=== PATIENT | female | born 1970 | race Caucasian/White ===

== ENCOUNTER 2016-11-04 13:54 | Inpatient (IN) | payer OTHER ==
[~2016-11-04] VITALS: Ht 160 cm; Wt 105.2 kg
[2016-11-04 13:55] VITALS: BP 128/77; PULSE 99; RESP 18; TEMP 99.2; O2SAT 97
--- NOTE | 2016-11-04 14:01 | PD ---
Physical Exam Time Seen by Provider: 13:58 Narrative Macedonian-speaking. Information obtained from daughter. 45-year-old female hearing voices telling her to take her life. Has a plan to take pills. Denies EtOH or illicit drug use. The voices are telling her to cut her wrists. History of depression and anxiety and currently on medications. Patient seen in triage. Vital signs reviewed. Patient taken to medical bed. Data Data Last Documented VS Vital Signs Date Time Temp Pulse Resp B/P (MAP) Pulse Ox O2 Delivery O2 Flow Rate FiO2 11/04/16 13:55 99.2 99 18 128/77 (94) 97 Room Air MDM Supervised Visit with KHOA: Kiki La Nov 04, 2016 14:01
--- NOTE | 2016-11-04 14:18 | PD ---
HPI Chief Complaint: Psychiatric Symptoms Time Seen by Provider: 14:03 Travel History International Travel<30 days: No Contact w/Intl Traveler<30days: No Traveled to known affect area: No History of Present Illness HPI 45-year-old female presents to the emergency department with her daughter and friend at bedside for psychiatric evaluation. The patient is Djiboutian-speaking and request translation to be done through daughter and friend. Formal commissioning agent was offered inpatient. She saw her psychiatrist today and told her psychiatrist that she had thoughts of hurting herself and was hearing voices that were telling her to cut her wrists. She was recommended to come to the emergency department for evaluation. The patient has history of anxiety, depression, hypothyroidism, diabetes, hypertension, hyperlipidemia, chronic renal insufficiency. She has had thoughts of hurting herself in the past by taking pills however, has never hurt herself. The patient denies trying to hurt herself this time. She does have thoughts of hurting herself by taking pills or cutting her wrists. She denies history of hearing voices and states this is new for her for the past 2 days. They are telling her to cut her wrists. She denies any visual hallucinations. Patient is alert and oriented and answers questions appropriately. PFSH Social History Alcohol Use: No Tobacco Use: No Substance Use: No Review of Systems Except as stated in HPI: all other systems reviewed are Neg Physical Exam Narrative GENERAL: Well-nourished, well-developed female patient, ambulatory. Afebrile SKIN: Focused skin assessment warm/dry. HEAD: Normocephalic. Atraumatic. EYES: No scleral icterus. No injection or drainage. NECK: Supple, trachea midline. No JVD or lymphadenopathy. CARDIOVASCULAR: Regular rate and rhythm without murmurs, gallops, or rubs. RESPIRATORY: Breath sounds equal bilaterally. No accessory muscle use. Lungs sounds are clear to auscultation. GASTROINTESTINAL: Abdomen soft, non-tender, nondistended. MUSCULOSKELETAL: No cyanosis, or edema. PSYCHIATRIC: No delusional thought processes. No hallucinations. Data Data Last Documented VS Vital Signs Date Time Temp Pulse Resp B/P (MAP) Pulse Ox O2 Delivery O2 Flow Rate FiO2 11/04/16 13:55 99.2 99 18 128/77 (94) 97 Room Air Orders Orders Complete Blood Count With Diff (11/04/16 14:11) Comprehensive Metabolic Panel (11/04/16 14:11) Thyroid Stimulating Hormone (11/04/16 14:11) Urinalysis - C+S If Indicated (11/04/16 14:11) Psych Screen (11/04/16 14:11) Drug Screen, Random Urine (11/04/16 14:11) Alcohol (Ethanol) (11/04/16 14:11) Salicylates (Aspirin) (11/04/16 14:11) Tylenol (Acetaminophen) (11/04/16 14:11) Diet Regular Basic (11/04/16 Dinner) Labs Laboratory Tests Test 11/04/16 14:25 11/04/16 14:33 Urine Color YELLOW Urine Turbidity HAZY Urine pH 6.0 Urine Specific [place] 1.023 Urine Protein 300 mg/dL Urine Glucose (UA) NEG mg/dL Urine Ketones NEG mg/dL Urine Occult Blood TRACE Urine Nitrite NEG Urine Bilirubin NEG Urine Urobilinogen LESS THAN 2.0 MG/DL Urine Leukocyte Esterase NEG Urine RBC 1 /hpf Urine WBC 5 /hpf Urine Squamous Epithelial Cells 23 /hpf Urine Bacteria RARE /hpf Microscopic Urinalysis Comment CULT NOT INDICATED Urine Opiates Screen NEG Urine Barbiturates Screen NEG Urine Amphetamines Screen NEG Urine Benzodiazepines Screen POS Urine Cocaine Screen NEG Urine Cannabinoids Screen NEG White Blood Count 9.4 TH/MM3 Red Blood Count 4.02 MIL/MM3 Hemoglobin 10.0 GM/DL Hematocrit 32.5 % Mean Corpuscular Volume 80.7 FL Mean Corpuscular Hemoglobin 24.8 PG Mean Corpuscular Hemoglobin Concent 30.7 % Red Cell Distribution Width 20.6 % Platelet Count 376 TH/MM3 Mean Platelet Volume 8.2 FL Neutrophils (%) (Auto) 66.0 % Lymphocytes (%) (Auto) 21.8 % Monocytes (%) (Auto) 8.0 % Eosinophils (%) (Auto) 4.1 % Basophils (%) (Auto) 0.1 % Neutrophils # (Auto) 6.2 TH/MM3 Lymphocytes # (Auto) 2.1 TH/MM3 Monocytes # (Auto) 0.8 TH/MM3 Eosinophils # (Auto) 0.4 TH/MM3 Basophils # (Auto) 0.0 TH/MM3 CBC Comment DIFF FINAL Differential Comment Blood Urea Nitrogen 21 MG/DL Creatinine 1.47 MG/DL Random Glucose 133 MG/DL Total Protein 7.4 GM/DL Albumin 3.2 GM/DL Calcium Level 8.6 MG/DL Alkaline Phosphatase 90 U/L Aspartate Amino Transf (AST/SGOT) 16 U/L Alanine Aminotransferase (ALT/SGPT) 27 U/L Total Bilirubin 0.1 MG/DL Sodium Level 140 MEQ/L Potassium Level 3.5 MEQ/L Chloride Level 107 MEQ/L Carbon Dioxide Level 26.6 MEQ/L Anion Gap 6 MEQ/L Estimat Glomerular Filtration Rate 38 ML/MIN Thyroid Stimulating Hormone 3rd Gen 5.090 uIU/ML Salicylates Level LESS THAN 1.7 MG/DL Acetaminophen Level LESS THAN 2.0 MCG/ML Ethyl Alcohol Level LESS THAN 3 MG/DL MDM Medical Decision Making Medical Screen Exam Complete: Yes Emergency Medical Condition: Yes Medical Record Reviewed: Yes Differential Diagnosis Depression versus anxiety versus psychosis versus bipolar disorder versus schizophrenia versus electrolyte abnormality Narrative Course 45-year-old female presents to the emergency department for suicidal ideation, hearing voices. CBC, CMP, TSH, UA, urine drug screen, alcohol level, salicylate level, Tylenol level are ordered and pending. Roberson Act will be initiated. CBC .shows anemia of hemoglobin 10.0, hematocrit 32.5. CMP shows BUN 21, creatinine 1.47, glucose 133. TSH is 5.090. UA is negative for acute infection. UDS is positive for benzodiazepines. Alcohol level is less than 3. Salicylate level is less than 1.7. Tylenol level is less than 2.0. Patient is medically cleared for psychiatric screening and disposition. Mental health screening discussed with the patient. Psychiatric screen ordered. Diagnosis Primary Impression: Depression Qualified Codes: F32.9 - Major depressive disorder, single episode, unspecified Additional Impression: Suicidal ideation Additional Instructions: Patient is medically cleared for psychiatric screening and disposition. Condition: Stable RuslanTrudy GARCIA Nov 04, 2016 14:18
--- NOTE | 2016-11-04 15:15 | PD ---
Data Data Last Documented VS Vital Signs Date Time Temp Pulse Resp B/P (MAP) Pulse Ox O2 Delivery O2 Flow Rate FiO2 11/04/16 13:55 99.2 99 18 128/77 (94) 97 Room Air Orders Orders Complete Blood Count With Diff (11/04/16 14:11) Comprehensive Metabolic Panel (11/04/16 14:11) Thyroid Stimulating Hormone (11/04/16 14:11) Urinalysis - C+S If Indicated (11/04/16 14:11) Psych Screen (11/04/16 14:11) Drug Screen, Random Urine (11/04/16 14:11) Alcohol (Ethanol) (11/04/16 14:11) Salicylates (Aspirin) (11/04/16 14:11) Tylenol (Acetaminophen) (11/04/16 14:11) Diet Regular Basic (11/04/16 Dinner) Labs Laboratory Tests Test 11/04/16 14:25 11/04/16 14:33 MDM Supervised Visit with KHOA: Yes Narrative Course The history, exam, and medical decision-making in the associated mid-level provider note were completed with my assistance. I reviewed and agree with the findings presented. I attest that I had a [id number] encounter with the patient on the same day, and personally performed and documented my assessment and findings in the medical record. *My assessment and Findings: 45 year-old woman, increased hearing voices increased depression increased suicidality. Looks otherwise well. Pleasant. Placed under a Roberson act and plan for psychiatric evaluation. Krystian Mac MD Nov 04, 2016 15:15
[2016-11-04 15:19] LABS: AUTOMATED NEUTROPHIL # 6.2 TH/MM3 (1.8-7.7); BASOPHIL % 0.1 % (0.0-2.0); EOSINOPHIL # 0.4 TH/MM3 (0-0.4); EOSINOPHIL % 4.1 % (0.0-4.0); HEMATOCRIT 32.5 % (35.0-46.0); HEMO FLAGS DIFF FINAL; LYMPH % 21.8 % (9.0-44.0); LYMPHOCYTE # 2.1 TH/MM3 (1.0-4.8); MEAN CELL VOLUME 80.7 FL (80.0-100.0); MEAN CORPUSCULAR HEMOGLOBIN 24.8 PG (27.0-34.0); MEAN CORPUSCULAR HGB CONC 30.7 % (32.0-36.0); PLATELET COUNT 376 TH/MM3 (150-450); RED BLOOD COUNT 4.02 MIL/MM3 (4.00-5.30); RED CELL DISTRIBUTION WIDTH 20.6 % (11.6-17.2); WHITE BLOOD COUNT 9.4 TH/MM3 (4.0-11.0)
[2016-11-04 15:22] LABS: BACTERIA, URINE RARE /hpf; BLOOD, URINE TRACE (NEG); COMMENT (UR) CULT NOT INDICATED; CULTURE IF INDICATED CULT NOT INDICATED; GLUCOSE,URINE NEG (NEG); KETONE, URINE NEG (NEG); NITRITE,URINE NEG (NEG); SQUAMOUS EPITHELIAL CELL URINE 23 /hpf (0-5); URINE COLOR YELLOW (YELLW/STRAW)
[2016-11-04 15:31] LABS: ALT (GPT) 27 U/L (10-53); ANION GAP 6 MEQ/L (5-15); AST (GOT) 16 U/L (15-37); BICARBONATE 26.6 MEQ/L (21.0-32.0); BLOOD UREA NITROGEN 21 MG/DL (7-18); CHLORIDE 107 MEQ/L (98-107); GLOMERULAR FILTRATION RATE 38 ML/MIN (>89); POTASSIUM 3.5 MEQ/L (3.5-5.1); SODIUM (NA) 140 MEQ/L (136-145)
[2016-11-04 15:41] LABS: ALKALINE PHOSPHATASE 90 U/L (45-117); TOTAL BILIRUBIN ADULT 0.1 MG/DL (0.2-1.0)
[2016-11-04 15:43] LABS: ACETAMINOPHEN LESS THAN 2.0 MCG/ML (10.0-30.0); ALCOHOL LESS THAN 3 MG/DL (0-5)
[2016-11-04] MEDS ORDERED: CLON.5 PO (16:13)
[2016-11-04] MEDS ORDERED: FLUT1SPR5 EACH NARE (16:13)
[2016-11-04] MEDS ORDERED: FOLI1TAB6 PO (16:13)
[2016-11-04] MEDS ORDERED: VITA250T3 PO (16:13)
[2016-11-04] MEDS ORDERED: TRAM50TA PO (16:13)
[2016-11-04] MEDS ORDERED: FERR325T8 PO (16:13)
[2016-11-04] MEDS ORDERED: ROSU40 PO (16:13)
[2016-11-04] MEDS ORDERED: ASPI1TAB91 PO (16:13)
[2016-11-04] MEDS ORDERED: TRAD5TAB PO (16:13)
[2016-11-04] MEDS ORDERED: SYNT175T PO (16:13)
[2016-11-04] MEDS ORDERED: NEUR600T PO (16:13)
[2016-11-04] MEDS ORDERED: TEMA30CA PO (16:13)
[2016-11-04] MEDS ORDERED: ZANT300T PO (16:13)
[2016-11-04] MEDS ORDERED: CHOL1CAP6 PO (16:13)
[2016-11-04] MEDS ORDERED: VITA10002 PO (16:13)
[2016-11-04] MEDS ORDERED: COZA100T PO (16:13)
[2016-11-04] MEDS ORDERED: ZOLO100T PO (16:13)
[2016-11-04] MEDS ORDERED: OMEP20TA PO (16:13)
[2016-11-04 17:38] VITALS: BP 158/67; PULSE 98; RESP 18; O2SAT 98
--- NOTE | 2016-11-04 19:00 | PD ---
History of Present Illness Chief Complaint: Psychiatric Symptoms Time Seen by Provider: 16:25 Travel History International Travel<30 Days: No Contact w/Intl Traveler<30days: No Known affected area: No Legal Status Legal Status: Roberson Act Roberson Act Signed By: DR. Mac, [facility] History of Present Illness: History of Present Illness HPI 45-year-old Zimbabwean speaking female from [facility] with history of anxiety and depression as well as hypothyroidism, diabetes, hypertension, hyperlipidemia, chronic renal insufficiency, who presents to ED on a voluntary basis referred by her outpatient psychiatrist for evaluation of increase in auditory hallucinations, command type telling her to cut her wrist.She also reports thoughts of wanting to overdose on her pills. She has not made any attempt at harming herself. The patient saw her outpatient psychiatrist, Dr. Glasgow, for her second visit today . She denies history of hearing voices and states this is new for her for the past 2 days. She also reports inability to fall asleep and stay asleep despite taking temazepam. decrease appetite, increase in anxiety, increase in worry over her son who is in [place] and she has not heard from him, irritability, withdrawn and isolative behavior. Duration 2 days. Patient was placed under Rob[place]ron act by Dr. Mac EMR. No previous contact with [facility]. Patient is alert, oriented, obese female who is engaging and cooperative. Speech is clear, logical. She does not appear internally preoccupied. No A/ H at present . Mood is depressed , tearful at times. Appears of average intelligence. Decreased concentration. She reports that she feels medication is not helping her symptoms of depression and anxiety. PFSH Past Medical History ?: Unknown Psychiatric History Psychiatric History Hx Psychiatric Treatment: Two previous hospitalizations at [facility] in [place] in 2015. Sees [address]. Glasgow at [facility] Behavioral History of Inpatient Treatment: Yes Guns or firearms in home: No Social History Single female. Born and raised in [place]. Moved to [place] in March 2015. Lives with her daughter. One son in [place] Unemployed. Completed high school . Hx Alcohol Use: No Hx Tobacco Use: Yes Hx Substance Use: No Family Psychiatric History Maternal uncle completed suicide by hanging. One cousin also attempted suicide. Allergies-Medications (Allergen,Severity, Reaction): Coded Allergies: No Known Allergies (Unverified , 11/04/16) Reported Meds & Prescriptions Reported Meds & Active Scripts Active Reported Klonopin (Clonazepam) 0.5 Mg Tab 0.5 Mg PO BID Temazepam 30 Mg Cap 30 Mg PO HS PRN Neurontin (Gabapentin) 600 Mg Tab 600 Mg PO HS Flonase Nasal [place] (Fluticasone Nasal [place]) 50 Mcg/Act [place] 2 [place] EACH NARE DAILY Ferrous Sulfate 325 Mg (65 Mg Iron) Tablet 325 Mg PO DAILY Zoloft (Sertraline HCl) 100 Mg Tab 100 Mg PO DAILY Aspirin Adult Low Strength (Aspirin) 81 Mg Tabdr 81 Mg PO DAILY Tramadol (Tramadol HCl) 50 Mg Tab 50 Mg PO DAILY Zantac (Ranitidine HCl) 300 Mg Tab 300 Mg PO DAILY Cozaar (Losartan Potassium) 100 Mg Tab 100 Mg PO DAILY Omeprazole 20 Mg Tab 20 Mg PO DAILY Tradjenta (Linagliptin) 5 Mg Tab 5 Mg PO DAILY Folic Acid 1 Mg Tablet 1 Mg PO DAILY Vitamin C (Ascorbic Acid) 250 Mg Tab 500 Mg PO DAILY Vitamin D-3 (Cholecalciferol) 1,000 Unit Cap 1,000 Units PO DAILY Vitamin B-12 (Cyanocobalamin) 1,000 Mcg Tab 1,000 Mcg PO DAILY Synthroid (Levothyroxine Sodium) 175 Mcg Tab 175 Mcg PO DAILY Review of Systems Constitutional: COMPLAINS OF: Change in appetite Musculoskeletal: COMPLAINS OF: Joint pain Psychiatric: COMPLAINS OF: Anxiety, Depression, Suicidal Ideation Exam Alert: Yes [place]: Person (ox4) Mood: Depressed Affect: Tearful Speech: Clear, Logical (Communicates in Zimbabwean. ) Eye Contact: Normal Memory Intact: Comment (Not impaired.) Hallucinations: Auditory (tellingher to cut herself), Other Delusions: No Suicidal: Ideation (to cut self or take pills) Homicidal: Ideation (negative) Insight/Judgement Fair. Not impaired. MDM Medical Decision Making Medical Record Reviewed: Yes Assessment/Plan 45-year-old Zimbabwean speaking female with history of anxiety and depression who presents to ED on a voluntary basis but has been placed under a Roberson Act by Ed physician. She reports hearing voices telling her to cut herself and states this is new for her for the past 2 days. She also reports inability to fall asleep and stay asleep despite taking temazepam. decrease appetite, increase in anxiety, increase in worry over her son who is in [place] and she has not heard from him, irritability, withdrawn and isolative behavior. Patient will be monitored in J pod. Contact Dr. Johnson for disposition. Orders Orders Complete Blood Count With Diff (11/04/16 14:11) Comprehensive Metabolic Panel (11/04/16 14:11) Thyroid Stimulating Hormone (11/04/16 14:11) Urinalysis - C+S If Indicated (11/04/16 14:11) Psych Screen (11/04/16 14:11) Drug Screen, Random Urine (11/04/16 14:11) Alcohol (Ethanol) (11/04/16 14:11) Salicylates (Aspirin) (11/04/16 14:11) Tylenol (Acetaminophen) (11/04/16 14:11) Diet Regular Basic (11/04/16 Dinner) Gabapentin (Neurontin) (11/04/16 21:00) Losartan (Cozaar) (11/05/16 09:00) Sertraline (Zoloft) (11/05/16 09:00) (Nf) Rosuvastatin (Crestor) (11/04/16 21:00) Quetiapine (Seroquel) (11/04/16 21:00) Results Vital Signs Date Time Temp Pulse Resp B/P (MAP) Pulse Ox O2 Delivery O2 Flow Rate FiO2 11/04/16 17:38 98 18 158/67 (97) 98 Room Air 11/04/16 13:55 99.2 99 18 128/77 (94) 97 Room Air Laboratory Tests Test 11/04/16 14:25 11/04/16 14:33 Urine Color YELLOW Urine Turbidity HAZY Urine pH 6.0 Urine Specific [place] 1.023 Urine Protein 300 Urine Glucose (UA) NEG Urine Ketones NEG Urine Occult Blood TRACE Urine Nitrite NEG Urine Bilirubin NEG Urine Urobilinogen LESS THAN 2.0 Urine Leukocyte Esterase NEG Urine RBC 1 Urine WBC 5 Urine Squamous Epithelial Cells 23 Urine Bacteria RARE Microscopic Urinalysis Comment CULT NOT INDICATED Urine Opiates Screen NEG Urine Barbiturates Screen NEG Urine Amphetamines Screen NEG Urine Benzodiazepines Screen POS Urine Cocaine Screen NEG Urine Cannabinoids Screen NEG White Blood Count 9.4 Red Blood Count 4.02 Hemoglobin 10.0 Hematocrit 32.5 Mean Corpuscular Volume 80.7 Mean Corpuscular Hemoglobin 24.8 Mean Corpuscular Hemoglobin Concent 30.7 Red Cell Distribution Width 20.6 Platelet Count 376 Mean Platelet Volume 8.2 Neutrophils (%) (Auto) 66.0 Lymphocytes (%) (Auto) 21.8 Monocytes (%) (Auto) 8.0 Eosinophils (%) (Auto) 4.1 Basophils (%) (Auto) 0.1 Neutrophils # (Auto) 6.2 Lymphocytes # (Auto) 2.1 Monocytes # (Auto) 0.8 Eosinophils # (Auto) 0.4 Basophils # (Auto) 0.0 CBC Comment DIFF FINAL Differential Comment Blood Urea Nitrogen 21 Creatinine 1.47 Random Glucose 133 Total Protein 7.4 Albumin 3.2 Calcium Level 8.6 Alkaline Phosphatase 90 Aspartate Amino Transf (AST/SGOT) 16 Alanine Aminotransferase (ALT/SGPT) 27 Total Bilirubin 0.1 Sodium Level 140 Potassium Level 3.5 Chloride Level 107 Carbon Dioxide Level 26.6 Anion Gap 6 Estimat Glomerular Filtration Rate 38 Thyroid Stimulating Hormone 3rd Gen 5.090 Salicylates Level LESS THAN 1.7 Acetaminophen Level LESS THAN 2.0 Ethyl Alcohol Level LESS THAN 3 Diagnosis Primary Impression: Major depressive disorder without psychotic features Additional Instructions: Patient is medically cleared for psychiatric screening and disposition. Condition: Stable Problem Qualifiers Primary Impression: Major depressive disorder without psychotic features Joanie Parrish Nov 04, 2016 19:00
[2016-11-04] MEDS ORDERED: QUEtiapine FUMARATE 100 MG TAB PO SCH (21:00)
[2016-11-04] MEDS: ATORVASTATIN 80 MG TAB PO SCH (21:00)
[2016-11-04] MEDS: GABAPENTIN 300 MG CAP PO SCH (21:00)
[2016-11-04] MEDS ORDERED: ALUMINUM/MAGNESIUM/SIMETH 30 ML CUP PO PRN (22:15)
[2016-11-04] MEDS ORDERED: MAGNESIUM HYDROXIDE SUSP 30 ML CUP PO PRN (22:15)
[2016-11-04 22:43] VITALS: BP 137/67; PULSE 94; RESP 18; TEMP 98.5
[2016-11-05] MEDS: LEVOTHYROXINE SODIUM 100 MCG TAB PO SCH (06:00)
[2016-11-05] MEDS: PANTOPRAZOLE SOD 20 MG DELAYED RELEASE TAB PO SCH (06:00)
[2016-11-05] MEDS: LEVOTHYROXINE SODIUM 75 MCG TAB PO SCH (06:00)
[2016-11-05 06:14] VITALS: BP 114/64; PULSE 81; RESP 18; TEMP 98.3; O2SAT 97
[2016-11-05] MEDS ORDERED: DEXTROSE 50% IN WATER 50 ML VIAL(D50) IV PUSH PRN (07:45)
[2016-11-05] MEDS ORDERED: GLUCAGON 1 MG/ML VIAL OTHER PRN (07:45)
[2016-11-05] MEDS: INSULIN ASPART SUPPLEMENTAL SCALE SQ SCH ×4 (08:00→20:17)
[2016-11-05] MEDS: ASPIRIN EC 81 MG TABEC PO SCH (08:59)
[2016-11-05] MEDS: FAMOTIDINE 20 MG TAB PO SCH (08:59)
[2016-11-05] MEDS: SERTRALINE HCL 100 MG TAB PO SCH (08:59)
[2016-11-05] MEDS: LOSARTAN 50 MG TAB PO SCH (08:59)
[2016-11-05] MEDS: clonazePAM 0.5 MG TAB PO SCH ×2 (08:59→20:38)
[2016-11-05] MEDS: NICOTINE 21 MG/24 HR PATCH T-DERMAL SCH (09:00)
[2016-11-05] MEDS ORDERED: LINAGLIPTIN 5 MG PO SCH (09:00)
[2016-11-05] MEDS: traMADol HCL 50 MG TAB PO SCH ×5 (09:01→11:57)
[2016-11-05 10:55] LABS: HDL CHOLESTEROL 54.5 MG/DL (40.0-60.0); LDL CHOLESTEROL 48 MG/DL (0-99)
[2016-11-05 12:14] LABS: HEMOGLOBIN A1a 1.4 %; HEMOGLOBIN A1b 0.8 %; HEMOGLOBIN Ao 84.3 %; HEMOGLOBIN F 1.2 %; HEMOGLOBIN LA1C 2.2 %; HEMOGLOBIN P3 3.8 %
--- NOTE | 2016-11-05 16:09 | PD.CONS ---
HPI Service [facility] Consult Requested By Psychology Department Reason for Consult Assistance with management of diabetes mellitus and hypothyroidism Primary Care Physician Unknown Diagnoses: History of Present Illness This is a 45-year-old female patient with a past medical history which includes hypertension, GERD, chronic kidney disease stage III, anxiety/depression, diabetes mellitus, peripheral neuropathy, fibromyalgia, hyperlipidemia and hypothyroidism. Patient presented to the ER with auditory hallucinations telling her to hurt herself. We have been consulted for assistance with management of diabetes mellitus and hypothyroidism. Patient primarily Khmer speaking exam done by Dr. Whitehead in [place]. Patient reports pain left side with radiation to the left back worse with certain movements. Offers no other specific complaints. Review of Systems ROS Limitations: Poor Historian Constitutional: DENIES: Fatigue, Fever, Chills Endocrine: DENIES: Heat/cold intolerance, Polydipsia, Polyuria Eyes: DENIES: Blurred vision, Diplopia, Vision loss Respiratory: DENIES: Cough, Sputum production, Shortness of breath Cardiovascular: DENIES: Chest pain, Palpitations, Dyspnea on Exertion Gastrointestinal: DENIES: Abdominal pain, Constipation, Diarrhea Musculoskeletal: DENIES: Joint pain, Muscle aches, Stiffness Integumentary: DENIES: Abnormal pigmentation, Pruritus, Rash Neurologic: DENIES: Headache, Localized weakness, Seizures Psychiatric: COMPLAINS OF: Anxiety, Depression, Delusions Past Family Social History Past Medical History Hypertension, GERD, chronic kidney disease stage stage III, anxiety/depression, diabetes mellitus, peripheral neuropathy, fibromyalgia, hyperlipidemia, hypothyroidism Past Surgical History Denies prior surgeries Reported Medications Klonopin (Clonazepam) 0.5 Mg Tab 0.5 Mg PO BID Temazepam 30 Mg Cap 30 Mg PO HS PRN Neurontin (Gabapentin) 600 Mg Tab 600 Mg PO HS Flonase Nasal [place] (Fluticasone Nasal [place]) 50 Mcg/Act [place] 2 [place] EACH NARE DAILY Ferrous Sulfate 325 Mg (65 Mg Iron) Tablet 325 Mg PO DAILY Zoloft (Sertraline HCl) 100 Mg Tab 100 Mg PO DAILY Aspirin Adult Low Strength (Aspirin) 81 Mg Tabdr 81 Mg PO DAILY Tramadol (Tramadol HCl) 50 Mg Tab 50 Mg PO DAILY Zantac (Ranitidine HCl) 300 Mg Tab 300 Mg PO DAILY Cozaar (Losartan Potassium) 100 Mg Tab 100 Mg PO DAILY Omeprazole 20 Mg Tab 20 Mg PO DAILY Tradjenta (Linagliptin) 5 Mg Tab 5 Mg PO DAILY Folic Acid 1 Mg Tablet 1 Mg PO DAILY Vitamin C (Ascorbic Acid) 250 Mg Tab 500 Mg PO DAILY Vitamin D-3 (Cholecalciferol) 1,000 Unit Cap 1,000 Units PO DAILY Vitamin B-12 (Cyanocobalamin) 1,000 Mcg Tab 1,000 Mcg PO DAILY Synthroid (Levothyroxine Sodium) 175 Mcg Tab 175 Mcg PO DAILY Allergies: Coded Allergies: No Known Allergies (Unverified , 11/04/16) Active Ordered Medications Current Medications Medications (Trade) Dose Ordered Sig/Kellie Route Start Time Stop Time Status Last Admin (Neurontin) 600 mg HS PO 11/04/16 21:00 11/04/16 21:00 (Cozaar) 100 mg DAILY PO 11/05/16 09:00 11/05/16 08:59 (Zoloft) 100 mg DAILY PO 11/05/16 09:00 11/05/16 08:59 (Lipitor) 80 mg HS PO 11/04/16 21:00 11/04/16 21:00 (SEROquel) 100 mg HS PO 11/04/16 21:00 11/04/16 21:00 (Synthroid) 100 mcg DAILY@0600 PO 11/05/16 06:00 11/05/16 06:00 (Synthroid) 75 mcg DAILY@0600 PO 11/05/16 06:00 11/05/16 06:00 (Protonix) 20 mg DAILY@0600 PO 11/05/16 06:00 11/05/16 06:00 Patient Own Medication PT OWN MED: LINAGLIP... DAILY PO 11/05/16 09:00 Future Hold (Pepcid) 20 mg DAILY PO 11/05/16 09:00 11/05/16 08:59 (Ultram) 50 mg DAILY PO 11/05/16 09:00 11/05/16 10:00 (Ecotrin Ec) 81 mg DAILY PO 11/05/16 09:00 11/05/16 08:59 (Ferrous Sulfate) 325 mg DAILY@1800 PO 11/05/16 18:00 (Restoril) 30 mg HS PRN PO 11/04/16 22:15 (KlonoPIN) 0.5 mg BID PO 11/05/16 09:00 11/05/16 08:59 (Milk Of Magnesia Liq) 30 ml DAILY PRN PO 11/04/16 22:15 (Mag-Al Plus Susp Liq) 30 ml Q6H PRN PO 11/04/16 22:15 (Habitrol 21 Mg Patch.24 Hr) 1 patch DAILY T-DERMAL 11/05/16 09:00 Miscellaneous Information 1 HS T-DERMAL 11/05/16 21:00 (D50w (Vial) Inj) 50 ml UNSCH PRN IV PUSH 11/05/16 07:45 (Glucagon Inj) 1 mg UNSCH PRN OTHER 11/05/16 07:45 (NovoLOG SUPPLEMENTAL SCALE) 1 ACHS SLIDING SCALE SQ 11/05/16 08:00 Family History Reports family history of hypertension Social History Endorses tobacco use Physical Exam Vital Signs Vital Signs Date Time Temp Pulse Resp B/P (MAP) Pulse Ox O2 Delivery O2 Flow Rate FiO2 11/05/16 06:14 98.3 81 18 114/64 (81) 97 11/04/16 22:43 98.5 94 18 137/67 (90) 11/04/16 21:43 11/04/16 17:38 98 18 158/67 (97) 98 Room Air Physical Exam GENERAL: This is a well-nourished, well-developed patient, in no apparent distress. SKIN: No rashes, ecchymoses or lesions. Cool and dry. HEAD: Atraumatic. Normocephalic. No temporal or scalp tenderness. EYES: Extraocular motions intact. No scleral icterus. No injection or drainage. CARDIOVASCULAR: Regular rate and rhythm without murmurs, gallops, or rubs. RESPIRATORY: Clear to auscultation. Breath sounds equal bilaterally. No wheezes , rales, or rhonchi. GASTROINTESTINAL: Abdomen soft, non-tender, nondistended. No hepato-splenomegaly , or palpable masses. No guarding. MUSCULOSKELETAL: Extremities without clubbing, cyanosis, or edema. No joint tenderness, effusion, or edema noted. No calf tenderness. Negative Homans sign bilaterally. NEUROLOGICAL: Awake and alert. No focal deficits noted. Motor and sensory grossly within normal limits. Five out of 5 muscle strength in all muscle groups. Normal speech. Laboratory Laboratory Tests Test 11/05/16 08:27 Hemoglobin A1c 6.1 Triglycerides Level 151 Cholesterol Level 133 LDL Cholesterol 48 HDL Cholesterol 54.5 Cholesterol/HDL Ratio 2.44 Free Thyroxine 0.88 Result Diagram: 11/04/16 1433 11/04/16 1433 Assessment and Plan Problem List: (1) Suicidal ideation ICD Codes: R45.851 - Suicidal ideations Status: Acute Plan: Suicidal ideations, depression and auditory hallucinations management per psychiatric team Diabetes mellitus Patient may resume home to gentle 5 mg by mouth daily family is able to bring in medication as pharmacy does not stock this. Accu-Cheks before meals at bedtime with low-dose sliding scale insulin coverage Diabetic diet Hypothyroidism Continue levothyroxine 125 mcg by mouth daily Recommend follow-up with stripping and booking machine operator after discharge for further TSH/free T4 monitoring Hypertension continue patient's home medications including losartan 100 mg by mouth daily Chronic iron deficiency anemia continue ferrous sulfate 325 mg by mouth daily Chronic kidney disease stage III appears to be at baseline avoid nephrotoxic agents Musculoskeletal pain Tylenol as needed for pain DVT prophylaxis patient is ambulatory and low risk Thank you for the consultation for allowing us to participate in the care of this patient. (2) HTN (hypertension) ICD Codes: I10 - Essential (primary) hypertension (3) DM (diabetes mellitus) ICD Codes: E11.9 - Type 2 diabetes mellitus without complications Status: Chronic (4) Hypothyroidism ICD Codes: E03.9 - Hypothyroidism, unspecified Status: Chronic (5) Depression ICD Codes: F32.9 - Major depressive disorder, single episode, unspecified Status: Acute (6) CKD (chronic kidney disease), stage III ICD Codes: N18.3 - Chronic kidney disease, stage 3 (moderate) Assessment and Plan Patient examined. Assessment and plan formulated with Rema Mora PA-C. I agree with the above. Problem Qualifiers (1) DM (diabetes mellitus): (2) Depression: Qualified Codes: F32.9 - Major depressive disorder, single episode, unspecified Rema Mora Nov 05, 2016 16:09 Thierry Whitehead DO Nov 09, 2016 23:21
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
[2016-11-05 18:00] VITALS: BP 100/57; PULSE 98; RESP 18; TEMP 98.2; O2SAT 100
[2016-11-05] MEDS: FERROUS SULFATE 325 MG (65 MG ELEMENTAL IRON) TAB PO SCH (18:39)
[2016-11-05] MEDS: ATORVASTATIN 80 MG TAB PO SCH (20:38)
[2016-11-05] MEDS: GABAPENTIN 300 MG CAP PO SCH (20:38)
[2016-11-05] MEDS: REMOVE OLD NICOTINE PATCH T-DERMAL SCH (21:00)
[2016-11-05] MEDS ORDERED: QUEtiapine FUMARATE 100 MG TAB PO SCH (21:00)
[2016-11-05] MEDS ORDERED: ATORVASTATIN 80 MG TAB PO SCH (21:00)
[2016-11-06 05:41] VITALS: BP 109/56; PULSE 85; RESP 18; TEMP 97.8; O2SAT 96
[2016-11-06] MEDS: PANTOPRAZOLE SOD 20 MG DELAYED RELEASE TAB PO SCH (06:08)
[2016-11-06] MEDS: LEVOTHYROXINE SODIUM 100 MCG TAB PO SCH (06:08)
[2016-11-06] MEDS: LEVOTHYROXINE SODIUM 75 MCG TAB PO SCH (06:08)
[2016-11-06] MEDS: INSULIN ASPART SUPPLEMENTAL SCALE SQ SCH ×4 (07:31→20:54)
--- NOTE | 2016-11-06 07:54 | EKG ---
Date Performed: 11/05/2016 Time Performed: 16:49:33 PTAGE: 45 years EKG: Sinus rhythm LOW QRS VOLTAGE IN PRECORDIAL LEADS BORDERLINE ECG Since previous tracing, no significant change not ed NO PREVIOUS TRACING DOCTOR: Denisse Guerrier Interpretating Date/Time 11/06/2016 07:52:35
[2016-11-06] MEDS: NICOTINE 21 MG/24 HR PATCH T-DERMAL SCH (09:00)
[2016-11-06] MEDS: LOSARTAN 50 MG TAB PO SCH (09:06)
[2016-11-06] MEDS: ASPIRIN EC 81 MG TABEC PO SCH (09:07)
[2016-11-06] MEDS: FAMOTIDINE 20 MG TAB PO SCH (09:07)
[2016-11-06] MEDS: clonazePAM 0.5 MG TAB PO SCH ×2 (09:08→21:49)
[2016-11-06] MEDS: SERTRALINE HCL 100 MG TAB PO SCH (09:08)
[2016-11-06] MEDS ORDERED: PILL SPLITTER OTHER PRN (15:30)
--- NOTE | 2016-11-06 16:17 | HHI.PYPN ---
Subjective Remarks Patient seen for follow-up, chart reviewed. Patient found lying on hospital bed , calm and cooperative with interview. Patient states that she has been feeling "so-so....good" and that yesterday felt ok. She denies resurgence of the command auditory hallucinations to kill herself; last time being yesterday. She states that she has been feeling "scared" to get out of her room due to not wanting any conflicts or arguments with the other loud patients on the unit. Patient was assured that staff is present all the time. She continues to report suicidal ideations which occur less now and lasts a couple of minutes. She states having received news that her son had called stating that he is doing ok in [place]. She states that knowing this gives her "strength". She reports having better last night. Review of Systems Except as stated in HPI: all other systems reviewed are Neg Objective Alert: Yes [place]: Person (ox4) Mood: Depressed (less today) Affect: Restricted Memory Intact: Comment (Not impaired.) Hallucinations: Auditory (tellingher to cut herself), Other Delusions: No Delusion Type: Other Suicidal: Ideation (continues to endorse) Homicidal: Ideation (negative) Insight/Judgment fair insight impulse control and judgment Vitals/IOs Vital Signs Date Time Temp Pulse Resp B/P (MAP) Pulse Ox O2 Delivery O2 Flow Rate FiO2 11/06/16 05:41 97.8 85 18 109/56 (73) 96 11/04/16 17:38 Room Air Assessment & Plan Problem List: (1) Major depressive disorder, recurrent, severe with psychotic features ICD Codes: F33.3 - Major depressive disorder, recurrent, severe with psychotic symptoms Assessment & Plan Patient continues to expereince AH and reports depressed mood along with suicidal ideations which have been decreasing. Will increase quetiapine to 250mg PO HS for psychosis and mood stabilization, continue rest of medications. encourage participation in groups and activities. Discharge planning in progress. Justification for Cont. Inpt. At risk for further decompensation if at lower level of care. Rivera Dennis MD Nov 06, 2016 16:16
[2016-11-06] MEDS: FERROUS SULFATE 325 MG (65 MG ELEMENTAL IRON) TAB PO SCH (17:43)
[2016-11-06 18:05] VITALS: BP 116/73; PULSE 106; RESP 18; TEMP 98; O2SAT 99
[2016-11-06] MEDS: REMOVE OLD NICOTINE PATCH T-DERMAL SCH (21:00)
[2016-11-06] MEDS: ATORVASTATIN 80 MG TAB PO SCH (21:49)
[2016-11-06] MEDS: GABAPENTIN 300 MG CAP PO SCH (21:50)
[2016-11-06] MEDS: QUEtiapine FUMARATE 100 MG TAB PO SCH (21:52)
[2016-11-07] MEDS: PANTOPRAZOLE SOD 20 MG DELAYED RELEASE TAB PO SCH (06:16)
[2016-11-07] MEDS: LEVOTHYROXINE SODIUM 100 MCG TAB PO SCH (06:16)
[2016-11-07] MEDS: LEVOTHYROXINE SODIUM 75 MCG TAB PO SCH (06:17)
[2016-11-07 06:29] VITALS: BP 102/53; PULSE 97; RESP 17; TEMP 98; O2SAT 94
[2016-11-07] MEDS: INSULIN ASPART SUPPLEMENTAL SCALE SQ SCH ×4 (08:00→21:00)
[2016-11-07] MEDS: ASPIRIN EC 81 MG TABEC PO SCH (08:08)
[2016-11-07] MEDS: SERTRALINE HCL 100 MG TAB PO SCH (08:08)
[2016-11-07] MEDS: LOSARTAN 50 MG TAB PO SCH (08:08)
[2016-11-07] MEDS: traMADol HCL 50 MG TAB PO SCH (08:09)
[2016-11-07] MEDS: FAMOTIDINE 20 MG TAB PO SCH (08:09)
[2016-11-07] MEDS: clonazePAM 0.5 MG TAB PO SCH ×2 (08:09→21:00)
[2016-11-07] MEDS: NICOTINE 21 MG/24 HR PATCH T-DERMAL SCH (09:00)
[2016-11-07 17:01] VITALS: BP 113/53; PULSE 94; RESP 16; TEMP 98.7; O2SAT 97
[2016-11-07] MEDS: FERROUS SULFATE 325 MG (65 MG ELEMENTAL IRON) TAB PO SCH (17:31)
[2016-11-07] MEDS: ATORVASTATIN 80 MG TAB PO SCH (21:00)
[2016-11-07] MEDS: GABAPENTIN 300 MG CAP PO SCH (21:00)
[2016-11-07] MEDS: QUEtiapine FUMARATE 100 MG TAB PO SCH (21:00)
[2016-11-07] MEDS: REMOVE OLD NICOTINE PATCH T-DERMAL SCH (21:00)
[2016-11-08] MEDS: PANTOPRAZOLE SOD 20 MG DELAYED RELEASE TAB PO SCH (05:52)
[2016-11-08] MEDS: LEVOTHYROXINE SODIUM 75 MCG TAB PO SCH (05:52)
[2016-11-08] MEDS: LEVOTHYROXINE SODIUM 100 MCG TAB PO SCH (05:52)
[2016-11-08 06:05] VITALS: BP 95/52; PULSE 89; RESP 18; TEMP 97.6; O2SAT 96
[2016-11-08] MEDS: INSULIN ASPART SUPPLEMENTAL SCALE SQ SCH ×4 (08:00→21:00)
[2016-11-08] MEDS: NICOTINE 21 MG/24 HR PATCH T-DERMAL SCH (09:00)
[2016-11-08] MEDS: SERTRALINE HCL 100 MG TAB PO SCH (09:09)
[2016-11-08] MEDS: LOSARTAN 50 MG TAB PO SCH (09:10)
[2016-11-08] MEDS: clonazePAM 0.5 MG TAB PO SCH ×2 (09:10→21:05)
[2016-11-08] MEDS: ASPIRIN EC 81 MG TABEC PO SCH (09:10)
[2016-11-08] MEDS: traMADol HCL 50 MG TAB PO SCH (09:10)
[2016-11-08] MEDS: FAMOTIDINE 20 MG TAB PO SCH (09:10)
--- NOTE | 2016-11-08 15:20 | HHI.PYPN ---
Subjective Remarks Patient was seen and case discussed with nursing. Patient is pleasant and cooperative with exam. Continues to have auditory hallucinations but give her commands to push and take things. She denies they're telling her to cut herself is very good 4 days ago. She admits to fleeting suicidal thoughts with no ideation intent or plan. No paranoia or delusions elicited Objective Alert: Yes [place]: Person (ox4), Place Mood: Depressed (less today) Affect: Appropriate Memory Intact: Comment (Not impaired.) Hallucinations: Auditory (to push), Other Delusions: No Delusion Type: Other Suicidal: Ideation (fleeting) Homicidal: Ideation (negative) Insight/Judgment Poor Vitals/IOs Vital Signs Date Time Temp Pulse Resp B/P (MAP) Pulse Ox O2 Delivery O2 Flow Rate FiO2 11/08/16 06:05 97.6 89 18 95/52 (66) 96 11/04/16 17:38 Room Air Assessment & Plan Problem List: (1) Major depressive disorder, recurrent, severe with psychotic features ICD Codes: F33.3 - Major depressive disorder, recurrent, severe with psychotic symptoms Assessment & Plan Increase Seroquel to 300 mg daily at bedtime Justification for Cont. Inpt. Patient would decompensate in a less restrictive setting Arjun Fernandez DO Nov 08, 2016 15:20
[2016-11-08] MEDS: FERROUS SULFATE 325 MG (65 MG ELEMENTAL IRON) TAB PO SCH (17:55)
[2016-11-08 20:45] VITALS: BP 123/71; PULSE 95; RESP 20; O2SAT 100
[2016-11-08] MEDS: REMOVE OLD NICOTINE PATCH T-DERMAL SCH (21:00)
[2016-11-08] MEDS ORDERED: QUEtiapine FUMARATE 300 MG TAB PO SCH (21:00)
[2016-11-08] MEDS: ATORVASTATIN 80 MG TAB PO SCH (21:05)
[2016-11-08] MEDS: GABAPENTIN 300 MG CAP PO SCH (21:06)
[2016-11-09 05:53] VITALS: BP 110/67; PULSE 93; RESP 16; TEMP 97.9; O2SAT 97
[2016-11-09] MEDS: LEVOTHYROXINE SODIUM 75 MCG TAB PO SCH (06:22)
[2016-11-09] MEDS: LEVOTHYROXINE SODIUM 100 MCG TAB PO SCH (06:22)
[2016-11-09] MEDS: PANTOPRAZOLE SOD 20 MG DELAYED RELEASE TAB PO SCH (06:22)
[2016-11-09] MEDS: INSULIN ASPART SUPPLEMENTAL SCALE SQ SCH ×4 (07:30→20:45)
[2016-11-09] MEDS: traMADol HCL 50 MG TAB PO SCH (08:10)
[2016-11-09] MEDS: FAMOTIDINE 20 MG TAB PO SCH (08:10)
[2016-11-09] MEDS: clonazePAM 0.5 MG TAB PO SCH ×2 (08:10→20:41)
[2016-11-09] MEDS: SERTRALINE HCL 100 MG TAB PO SCH (08:10)
[2016-11-09] MEDS: ASPIRIN EC 81 MG TABEC PO SCH (08:10)
[2016-11-09] MEDS: LOSARTAN 50 MG TAB PO SCH (08:10)
[2016-11-09] MEDS: NICOTINE 21 MG/24 HR PATCH T-DERMAL SCH (08:20)
[2016-11-09] MEDS: ACETAMINOPHEN 500 MG CPLT PO PRN (11:31)
--- NOTE | 2016-11-09 14:38 | HHI.PYPN ---
Subjective Remarks Patient was seen and case discussed with nursing. Patient's command auditory hallucinations returned last night and are telling her to cut herself. She has multiple cuts on her arms and says she has suicidal thoughts during this incident. She was transferred to the 2700 unit where she is under close observation in the camera room. I also ordered a one-to-one and let staff know. Patient says that the hallucinations are once again gone as of this morning. She minimizes her cutting. Mood remains depressed but today she denies suicidal thoughts ideation intent or plan Objective Alert: Yes [place]: Person (ox4), Place Mood: Depressed (less today) Affect: Appropriate Memory Intact: Comment (Not impaired.) Hallucinations: Auditory (denies today), Other Delusions: No Delusion Type: Other Suicidal: Intent (denies), Plan (denies), Ideation (denies today) Homicidal: Ideation (negative) Insight/Judgment Poor Vitals/IOs Vital Signs Date Time Temp Pulse Resp B/P (MAP) Pulse Ox O2 Delivery O2 Flow Rate FiO2 11/09/16 05:53 97.9 93 16 110/67 (81) 97 Assessment & Plan Problem List: (1) Major depressive disorder, recurrent, severe with psychotic features ICD Codes: F33.3 - Major depressive disorder, recurrent, severe with psychotic symptoms Assessment & Plan One-to-one ordered. Increase Seroquel to 400 mg by mouth daily at bedtime, and add a daily dose of seroquel 100 mg to be administered now Justification for Cont. Inpt. Patient will decompensate in a less restrictive setting Arjun Fernandez DO Nov 09, 2016 14:38
[2016-11-09] MEDS: QUEtiapine FUMARATE 100 MG TAB PO SCH (14:50)
[2016-11-09 18:00] VITALS: BP 125/71; PULSE 78; RESP 18; TEMP 97.4; O2SAT 99
[2016-11-09] MEDS: FERROUS SULFATE 325 MG (65 MG ELEMENTAL IRON) TAB PO SCH (18:10)
[2016-11-09] MEDS: TEMAZEPAM 15 MG CAP PO PRN (20:41)
[2016-11-09] MEDS: QUEtiapine FUMARATE 200 MG TAB PO SCH (20:41)
[2016-11-09] MEDS: GABAPENTIN 300 MG CAP PO SCH (20:41)
[2016-11-09] MEDS: ATORVASTATIN 80 MG TAB PO SCH (20:42)
[2016-11-09] MEDS: REMOVE OLD NICOTINE PATCH T-DERMAL SCH (20:51)
[2016-11-10 05:41] VITALS: BP 99/62; PULSE 101; RESP 16; TEMP 98; O2SAT 98
[2016-11-10] MEDS: LEVOTHYROXINE SODIUM 100 MCG TAB PO SCH (06:13)
[2016-11-10] MEDS: PANTOPRAZOLE SOD 20 MG DELAYED RELEASE TAB PO SCH (06:13)
[2016-11-10] MEDS: LEVOTHYROXINE SODIUM 75 MCG TAB PO SCH (06:13)
[2016-11-10] MEDS: ACETAMINOPHEN 500 MG CPLT PO PRN (06:17)
[2016-11-10] MEDS: INSULIN ASPART SUPPLEMENTAL SCALE SQ SCH ×4 (07:46→21:00)
[2016-11-10] MEDS: ASPIRIN EC 81 MG TABEC PO SCH (08:40)
[2016-11-10] MEDS: SERTRALINE HCL 100 MG TAB PO SCH (08:40)
[2016-11-10] MEDS: FAMOTIDINE 20 MG TAB PO SCH (08:40)
[2016-11-10] MEDS: LOSARTAN 50 MG TAB PO SCH (08:41)
[2016-11-10] MEDS: QUEtiapine FUMARATE 100 MG TAB PO SCH (08:41)
[2016-11-10] MEDS: clonazePAM 0.5 MG TAB PO SCH ×2 (08:41→21:11)
[2016-11-10] MEDS: traMADol HCL 50 MG TAB PO SCH (08:41)
[2016-11-10 08:46] VITALS: BP 110/70
[2016-11-10] MEDS: NICOTINE 21 MG/24 HR PATCH T-DERMAL SCH (09:00)
--- NOTE | 2016-11-10 15:25 | HHI.PYPN ---
Subjective Remarks LATE ENTRY FOR 11/07/16 - noted for this date was entered equivocally in different chart. Patient seen for follow up; chart reviewed. Patient states that she slept ok, mood having been "bad and happy", denies any AH (last being 2 days ago), denies any suicidal ideations (last being yesterday). She reports feeling irritable at times and tries to attend groups but most are in [place]. Review of Systems Except as stated in HPI: all other systems reviewed are Neg Objective Alert: Yes [place]: Person (ox4), Place Mood: Other ("bad and happy") Affect: Restricted Memory Intact: Comment (Not impaired.) Hallucinations: Auditory (denies today), Other Delusions: No Delusion Type: Paranoid Suicidal: Ideation (denies today) Homicidal: Ideation (negative) Insight/Judgment improved insight, fair impulse control and judgment Vitals/IOs Vital Signs Date Time Temp Pulse Resp B/P (MAP) Pulse Ox O2 Delivery O2 Flow Rate FiO2 11/10/16 08:46 110/70 (83) 11/10/16 05:41 98.0 101 16 98 Assessment & Plan Problem List: (1) Major depressive disorder, recurrent, severe with psychotic features ICD Codes: F33.3 - Major depressive disorder, recurrent, severe with psychotic symptoms Assessment & Plan Patient noted to have improvement of mood and denied any SI today. Will continue current treatment. Discharge planning in progress. Justification for Cont. Inpt. At risk for further decompensation if at lower level of care. Rivera Dennis MD Nov 10, 2016 15:25
--- NOTE | 2016-11-10 15:36 | HHI.PYPN ---
Subjective Remarks Patient seen for follow-up, chart reviewed. Patient found sitting in day room, coloring. Patient states that over the weekend she had hurt herself because the voices told her to and was moved to a different unit and put on 1:1 observation for safety. She states that since that incident over the weekend she has not had AH resume nor has she been having SI. She states that she was able to sleep last night and that her mood has been better. Review of Systems Except as stated in HPI: all other systems reviewed are Neg Objective Alert: Yes [place]: Person (ox4), Place Mood: Calm, Other ("bad and happy") Affect: Restricted Memory Intact: Comment (Not impaired.) Hallucinations: Auditory (denies), Other Delusions: No Delusion Type: Paranoid Suicidal: Ideation (denies today) Homicidal: Ideation (negative) Insight/Judgment fair insight, limited impulse control and judgment Vitals/IOs Vital Signs Date Time Temp Pulse Resp B/P (MAP) Pulse Ox O2 Delivery O2 Flow Rate FiO2 11/10/16 08:46 110/70 (83) 11/10/16 05:41 98.0 101 16 98 Assessment & Plan Problem List: (1) Major depressive disorder, recurrent, severe with psychotic features ICD Codes: F33.3 - Major depressive disorder, recurrent, severe with psychotic symptoms Assessment & Plan Patient has been with more stable mood since the incident and denies resurgence of AH or SI. Continue current treatment. Discharge planning in progress. Justification for Cont. Inpt. At risk for further decompensation if at lower level of care. Rivera Dennis MD Nov 10, 2016 15:36
[2016-11-10] MEDS: FERROUS SULFATE 325 MG (65 MG ELEMENTAL IRON) TAB PO SCH (18:00)
[2016-11-10] MEDS: REMOVE OLD NICOTINE PATCH T-DERMAL SCH (21:00)
[2016-11-10] MEDS: ATORVASTATIN 80 MG TAB PO SCH (21:11)
[2016-11-10] MEDS: QUEtiapine FUMARATE 200 MG TAB PO SCH (21:11)
[2016-11-10] MEDS: GABAPENTIN 300 MG CAP PO SCH (21:11)
[2016-11-11] MEDS: PANTOPRAZOLE SOD 20 MG DELAYED RELEASE TAB PO SCH (05:54)
[2016-11-11] MEDS: ACETAMINOPHEN 500 MG CPLT PO PRN ×2 (05:54→19:35)
[2016-11-11] MEDS: LEVOTHYROXINE SODIUM 100 MCG TAB PO SCH (05:54)
[2016-11-11] MEDS: LEVOTHYROXINE SODIUM 75 MCG TAB PO SCH (05:55)
[2016-11-11 06:10] VITALS: BP 98/53; PULSE 100; RESP 18; TEMP 98.3; O2SAT 97
[2016-11-11] MEDS: INSULIN ASPART SUPPLEMENTAL SCALE SQ SCH ×4 (08:00→20:56)
[2016-11-11] MEDS: FAMOTIDINE 20 MG TAB PO SCH (08:15)
[2016-11-11] MEDS: ASPIRIN EC 81 MG TABEC PO SCH (08:16)
[2016-11-11] MEDS: QUEtiapine FUMARATE 100 MG TAB PO SCH (08:16)
[2016-11-11] MEDS: SERTRALINE HCL 100 MG TAB PO SCH (08:16)
[2016-11-11] MEDS: traMADol HCL 50 MG TAB PO SCH (08:16)
[2016-11-11] MEDS: clonazePAM 0.5 MG TAB PO SCH ×2 (08:16→20:45)
[2016-11-11] MEDS: LOSARTAN 50 MG TAB PO SCH (08:16)
[2016-11-11] MEDS: NICOTINE 21 MG/24 HR PATCH T-DERMAL SCH (09:00)
--- NOTE | 2016-11-11 16:10 | HHI.PYPN ---
Subjective Remarks Patient seen for follow-up, chart reviewed. Patient found sleeping but able to wake up for interview. She states feeling "calm" and since the incident two days ago (scratching her arm with colored pencil) which she has been kept on 1: 1 observation but has not had recurrence of self injurious behavior. She states that she has not had resurgence of AH since that day not paranoid ideations. She states that she had her family visit which went well. At this time denies sI, HI, AVH or delusions. Review of Systems Except as stated in HPI: all other systems reviewed are Neg Objective Alert: Yes [place]: Person (ox4), Place Mood: Calm, Other ("bad and happy") Affect: Appropriate Memory Intact: Comment (Not impaired.) Hallucinations: Auditory (denies), Other Delusions: No Delusion Type: Other Suicidal: Ideation (denies today) Homicidal: Ideation (negative) Insight/Judgment limited insight, impulse control and judgment Vitals/IOs Vital Signs Date Time Temp Pulse Resp B/P (MAP) Pulse Ox O2 Delivery O2 Flow Rate FiO2 11/11/16 06:10 98.3 100 18 98/53 (68) 97 Intake and Output 11/11/16 11/11/16 11/12/16 08:00 16:00 00:00 Intake Total 480 ml Balance 480 ml Assessment & Plan Problem List: (1) Major depressive disorder, recurrent, severe with psychotic features ICD Codes: F33.3 - Major depressive disorder, recurrent, severe with psychotic symptoms Assessment & Plan Patient noted to be more calm and enaging interview, no longer endorsing depressive symptoms nor auditory hallucinations. 1:1 observation will be discontinued today. Will continue to monitor mood and behavior. Continue current treatment discharge planning n progress. Justification for Cont. Inpt. At risk for further decompensation if at lower level of care. Rivera Dennis MD Nov 11, 2016 16:10
[2016-11-11] MEDS: FERROUS SULFATE 325 MG (65 MG ELEMENTAL IRON) TAB PO SCH (17:00)
[2016-11-11 18:21] VITALS: BP 106/55; PULSE 118; RESP 18; TEMP 98.7; O2SAT 98
[2016-11-11] MEDS: GABAPENTIN 300 MG CAP PO SCH (20:45)
[2016-11-11] MEDS: ATORVASTATIN 80 MG TAB PO SCH (20:45)
[2016-11-11] MEDS: QUEtiapine FUMARATE 200 MG TAB PO SCH (20:45)
[2016-11-11] MEDS ORDERED: DICYCLOMINE HCL 10 MG CAP PO ONE (21:00)
[2016-11-11 22:28] LABS: ANION GAP 8 MEQ/L (5-15); AST (GOT) 42 U/L (15-37); BICARBONATE 23.3 MEQ/L (21.0-32.0); BLOOD UREA NITROGEN 34 MG/DL (7-18); CHLORIDE 105 MEQ/L (98-107); GLOMERULAR FILTRATION RATE 33 ML/MIN (>89); POTASSIUM 4.1 MEQ/L (3.5-5.1); SODIUM (NA) 136 MEQ/L (136-145)
[2016-11-11 22:29] LABS: ALT (GPT) 40 U/L (10-53)
[2016-11-11 22:31] LABS: ALKALINE PHOSPHATASE 87 U/L (45-117); TOTAL BILIRUBIN ADULT 0.2 MG/DL (0.2-1.0)
[2016-11-12 05:00] VITALS: BP 81/56; PULSE 124; RESP 20; TEMP 98.1; O2SAT 98
[2016-11-12 05:30] VITALS: BP 90/55; PULSE 106
[2016-11-12] MEDS: LEVOTHYROXINE SODIUM 100 MCG TAB PO SCH ×2 (06:00→08:18)
[2016-11-12] MEDS: PANTOPRAZOLE SOD 20 MG DELAYED RELEASE TAB PO SCH ×2 (06:00→08:18)
[2016-11-12] MEDS: LEVOTHYROXINE SODIUM 75 MCG TAB PO SCH ×2 (06:00→08:20)
[2016-11-12 06:19] VITALS: BP 99/55; PULSE 119
[2016-11-12] MEDS: INSULIN ASPART SUPPLEMENTAL SCALE SQ SCH ×4 (08:00→21:00)
[2016-11-12] MEDS: traMADol HCL 50 MG TAB PO SCH ×3 (08:17→14:57)
[2016-11-12] MEDS: FAMOTIDINE 20 MG TAB PO SCH (08:18)
[2016-11-12] MEDS: QUEtiapine FUMARATE 100 MG TAB PO SCH (08:18)
[2016-11-12] MEDS: SERTRALINE HCL 100 MG TAB PO SCH (08:18)
[2016-11-12] MEDS: clonazePAM 0.5 MG TAB PO SCH ×2 (08:18→21:47)
[2016-11-12] MEDS: LOSARTAN 50 MG TAB PO SCH (08:18)
[2016-11-12] MEDS: ASPIRIN EC 81 MG TABEC PO SCH (08:20)
--- NOTE | 2016-11-12 08:38 | RADRPT ---
EXAM DATE/TIME: 11/12/2016 07:46 [facility] COMPARISON: No previous studies available for comparison. INDICATIONS : Right upper quadrant pain. MEDICAL HISTORY : Hypertension. Fibromyalgia. Renal insufficiency. SURGICAL HISTORY : None. ENCOUNTER: Initial ACUITY: 1 day PAIN SCORE: 4/10 LOCATION: Abdomen. MEASUREMENTS: LIVER: 15.2 cm length COMMON DUCT: 4 mm RIGHT KIDNEY: 7.9 x 3.6 x 4.0 cm SPLEEN: 8.6 cm length FINDINGS: Ultrasound of the upper abdomen demonstrates increased echogenicity of the liver compatible with fatt y infiltration or hepatocellular disease. The spleen is unremarkable. The right kidney is small in si ze and increased in echogenicity characteristic of medical renal diseaseThe gallbladder and pancreas are unremarkable. No intrahepatic or extrahepatic ductal dilatation is seen. CONCLUSION: 1. Echogenic liver compatible with fatty infiltration or hepatocellular disease. Wilner Prince MD on November 12, 2016 at 8:36 Board Certified Radiologist. This report was verified electronically.
--- NOTE | 2016-11-12 15:09 | HHI.PYPN ---
Subjective Remarks Patient seen for follow-up, chart reviewed. Patient found in the room watching television, calm and cooperative interview today. Patient states she is feeling "good" stating that she is ready to go home. She reports having slept well denied any auditory hallucinations last time being 34 days ago. She also reports she had a sonogram done today was ordered with the results. Patient also reports having had loose stools recently for the past couple of days but has been trying to maintain hydrated. Patient denies suicidal or depressed, but this report feeling "a little anxious" referring to being on the acute unit. Patient this time denies SI, HI, AVH or delusions. Review of Systems Except as stated in HPI: all other systems reviewed are Neg Objective Alert: Yes [place]: Person (ox4), Place Mood: Calm, Other ("bad and happy") Affect: Appropriate Memory Intact: Comment (Not impaired.) Hallucinations: Auditory (denies), Other Delusions: No Delusion Type: Other Suicidal: Ideation (denies today) Homicidal: Ideation (negative) Insight/Judgment Fair insight, impulse control and judgment. Labs Test 11/11/16 21:38 Blood Urea Nitrogen 34 MG/DL Creatinine 1.68 MG/DL Random Glucose 158 MG/DL Total Protein 7.0 GM/DL Albumin 3.0 GM/DL Calcium Level 8.7 MG/DL Alkaline Phosphatase 87 U/L Aspartate Amino Transf (AST/SGOT) 42 U/L Alanine Aminotransferase (ALT/SGPT) 40 U/L Total Bilirubin 0.2 MG/DL Sodium Level 136 MEQ/L Potassium Level 4.1 MEQ/L Chloride Level 105 MEQ/L Carbon Dioxide Level 23.3 MEQ/L Anion Gap 8 MEQ/L Estimat Glomerular Filtration Rate 33 ML/MIN Vitals/IOs Vital Signs Date Time Temp Pulse Resp B/P (MAP) Pulse Ox O2 Delivery O2 Flow Rate FiO2 11/12/16 06:19 119 99/55 (70) 11/12/16 05:00 98.1 20 98 Assessment & Plan Problem List: (1) Major depressive disorder, recurrent, severe with psychotic features ICD Codes: F33.3 - Major depressive disorder, recurrent, severe with psychotic symptoms Assessment & Plan Patient at this time noted to have improvement of mood longer reporting feeling depressed or having suicidal ideations. Patient has been in good behavioral control. Patient had recent abdominal ultrasound which reported Echogenic liver compatible with fatty infiltration or hepatocellular disease. Continue current treatment. Patient likely for discharge tomorrow with outpatient follow -up with Dr. Gale her outpatient psychiatrist. Discharge planning in progress Justification for Cont. Inpt. At risk for further decompensation if at lower level of care Rivera Dennis MD Nov 12, 2016 15:09
[2016-11-12 17:00] VITALS: BP 98/53; PULSE 100; RESP 18; TEMP 98.3; O2SAT 100
--- NOTE | 2016-11-12 17:24 | PD.TTN ---
Patient Problems 1. Discharge planning 2. Medication compliance 3. Knowledge deficit 4. Lack of coping skills Progress Toward Goals Provider Present: Dr. Kirstin Dennis Provider Input: Dr. Dennis treatment team met to discuss patient's treatment plan, discharge and medication. Patient is doing better. Possible discharge tomorrow. Psychiatric Counselors Present: RENETTA McleanSue Psych Therapist Input: Patient seen today in room. Patient presented calm, cooperative, childlike, affect blunted. Patient's speech was clear, organized and appropriate. patient states she is not hearing any voices to harm self or others. Patient did not present to be internally stimulated or with and delusional content. Patient is medication complaint. Group Spec/RT/OT/HALL Present: ISABEL Bhagat Group Spec/RT/OT/HALL Input: Patient doesn't attend groups. Kayleigh RankinSue Nov 12, 2016 17:24
[2016-11-12] MEDS: FERROUS SULFATE 325 MG (65 MG ELEMENTAL IRON) TAB PO SCH (17:48)
[2016-11-12] MEDS: ACETAMINOPHEN 500 MG CPLT PO PRN (17:51)
[2016-11-12] MEDS: ATORVASTATIN 80 MG TAB PO SCH (21:47)
[2016-11-12] MEDS: GABAPENTIN 300 MG CAP PO SCH (21:47)
[2016-11-12] MEDS: QUEtiapine FUMARATE 200 MG TAB PO SCH (21:48)
[2016-11-12] MEDS: TEMAZEPAM 15 MG CAP PO PRN (21:50)
[2016-11-13 05:38] VITALS: BP 102/59; PULSE 97; RESP 17; TEMP 97.6
[2016-11-13] MEDS: PANTOPRAZOLE SOD 20 MG DELAYED RELEASE TAB PO SCH (05:42)
[2016-11-13] MEDS: LEVOTHYROXINE SODIUM 100 MCG TAB PO SCH (05:42)
[2016-11-13] MEDS: LEVOTHYROXINE SODIUM 75 MCG TAB PO SCH (05:43)
[2016-11-13] MEDS: INSULIN ASPART SUPPLEMENTAL SCALE SQ SCH ×3 (08:00→16:43)
[2016-11-13] MEDS: LOSARTAN 50 MG TAB PO SCH (08:16)
[2016-11-13] MEDS: FAMOTIDINE 20 MG TAB PO SCH (08:17)
[2016-11-13] MEDS: QUEtiapine FUMARATE 100 MG TAB PO SCH (08:17)
[2016-11-13] MEDS: ASPIRIN EC 81 MG TABEC PO SCH (08:17)
[2016-11-13] MEDS: clonazePAM 0.5 MG TAB PO SCH (08:17)
[2016-11-13] MEDS: SERTRALINE HCL 100 MG TAB PO SCH (08:17)
[2016-11-13] MEDS: traMADol HCL 50 MG TAB PO SCH (08:23)
[2016-11-13] MEDS ORDERED: FAMO20TA2 PO (15:15)
[2016-11-13] MEDS ORDERED: ATOR1TAB18 PO (15:15)
[2016-11-13] MEDS ORDERED: QUET1TAB9 PO (15:15)
[2016-11-13] MEDS ORDERED: ASPI-99 PO (15:15)
[2016-11-13] MEDS ORDERED: PANT20 PO (15:15)
[2016-11-13] MEDS ORDERED: LOSA100T PO (15:15)
[2016-11-13] MEDS ORDERED: CLON.5 PO (15:15)
[2016-11-13] MEDS ORDERED: QUET1TAB8 PO (15:15)
[2016-11-13] MEDS ORDERED: ZOLO100T PO (15:15)
[2016-11-13] MEDS ORDERED: ULTR50TA5 PO (15:15)
[2016-11-13] MEDS ORDERED: LEVO-154 PO (15:15)
[2016-11-13] MEDS ORDERED: GABA600T PO (15:15)
[2016-11-13] MEDS ORDERED: FERR325T20 PO (15:15)
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
== END 2016-11-13 17:55 | disposition home or self-care (01) | DRG 885 ==
LOC: NEPD 13:54 → NEDA 21:25 → H260 21:47 → H270 11-09 08:05
PROVIDERS: ADMIT Student in an Organized Health Care Education/Training Program; ATTEND Student in an Organized Health Care Education/Training Program
DX: F33.3 Major depressive disorder, recurrent, severe with psychotic symptoms (principal); E11.22 Type 2 diabetes mellitus with diabetic chronic kidney disease; R45.851 Suicidal ideations; I12.9 Hypertensive chronic kidney disease with stage 1 through stage 4 chronic kidney disease, or unspecified chronic kidney disease; F17.210 Nicotine dependence, cigarettes, uncomplicated; D50.9 Iron deficiency anemia, unspecified; Z68.41 Body mass index [BMI] 40.0-44.9, adult; E03.9 Hypothyroidism, unspecified; E78.5 Hyperlipidemia, unspecified; N18.3 Chronic kidney disease, stage 3 (moderate); E66.9 Obesity, unspecified; K21.9 Gastro-esophageal reflux disease without esophagitis; F41.9 Anxiety disorder, unspecified; E11.42 Type 2 diabetes mellitus with diabetic polyneuropathy; M79.7 Fibromyalgia; Z91.410 Personal history of adult physical and sexual abuse; K76.0 Fatty (change of) liver, not elsewhere classified
CPT/HCPCS: 76705; 80053; 80061; 80307; 81001; 82948; 83036; 84439; 84443; 85025; 93005; J1815